=== PATIENT | female | born 1960 | race Caucasian/White ===

== ENCOUNTER → 2017-05-09 | Outpatient (CLI) | payer OTHER ==
--- NOTE | 2017-05-09 15:52 | KCIC ---
CT of the right knee without contrast. Indication: Post knee replacement in 2012. Anterior and patellar pain and swelling.. . Technique: Contiguous axial images are obtained. Multiplanar reformatted images are also obtained. Exposure: One or more of the following individualized dose reduction techniques were utilized for this examination: 1. Automated exposure control 2. Adjustment of the mA and/or kV according to patient size 3. Use of iterative reconstruction technique. Comparison study: None available. Findings: Total knee arthroplasty in place with associated metal artifact. No evidence of aggressive bone destruction or osteolysis. No evidence of an acute fracture. There is a small joint effusion. No other acute soft tissue findings are suggested. IMPRESSION: Small joint effusion. No other acute findings, post total arthroplasty. Electronically signed by: Robbie Bird MD (05/09/2017 3:48 PM) [facility]
== END | disposition home or self-care (01) ==
LOC: KCIC CT 15:09
PROVIDERS: ATTEND Orthopaedic Surgery Sports Medicine
DX: M25.461 Effusion, right knee (principal); Z96.651 Presence of right artificial knee joint
CPT/HCPCS: 73700

== ENCOUNTER → 2018-03-02 | Outpatient (CLI) | payer BC, OTHER | END | disposition home or self-care (01) | LOC: PNCL 10:25 | DX: M79.604 Pain in right leg (principal); M79.605 Pain in left leg; M54.5 Low back pain; I10 Essential (primary) hypertension; M19.90 Unspecified osteoarthritis, unspecified site; Z96.651 Presence of right artificial knee joint | CPT/HCPCS: 99214 ==

== ENCOUNTER → 2018-04-09 | Outpatient (CLI) | payer BC ==
[~2018-04-09] MED LIST: ACET-704 PO; CYCL10TA2 PO; IBUP200T44 PO; IOHEXOL 180 MG/ML 10 ML VIAL. ONE; LIDOCAINE 2% PF 2ML VIAL. ONE; methylPREDNISolone ACETATE 40 MG/ML VIAL. ONE; methylPREDNISolone ACETATE 80 MG/ML VIAL. ONE
--- NOTE | 2018-04-09 19:15 | PAIN ---
DATE OF SERVICE: 04/09/2018 DIAGNOSES: Lumbar radiculopathy with lumbar degenerative disk disease and lumbar herniated disk. HISTORY OF PRESENT ILLNESS: The patient is a 57-year-old female who returns for followup status post initial evaluation and preauthorization for lumbar epidural steroid injection. The patient returns today wishing to proceed and reports still significant pain in the bilateral lower extremities, right equal to left essentially in the posterior gluteus, posterior thighs, posterior calves as well as across the low back. The patient reports the pain is a 4-5 on a scale of 10 on average, is a 5 at its worst, 4 at its least and is a 4 today. The patient reports it is aching, sharp, radiating, becoming more constant, aching, dull, sometimes sharp as well in the low back with some stinging pains in the leg. The patient reports it does awaken her from sleep about every 2-4 hours. She has to reposition, take pain medication or get out of bed to get back to sleep. The patient reports no new motor or sensory deficits, no new bowel or bladder incontinence or other complaints. PHYSICAL EXAMINATION: VITAL SIGNS: The patient's blood pressure 140/83, pulse 63, respirations 18, temperature is 98.1 degrees Fahrenheit, height is 5 feet 9 inches, weighs 195 pounds. GENERAL: The patient is awake, alert, oriented, appropriate, very pleasant demeanor. HEENT: Head shows normocephalic, atraumatic. Extraocular movements are intact, symmetrical. The patient wears eyeglasses. Oral cavity: Mucous membranes moist and pink. Dentition is intact. NECK: Shows anterior throat supple without palpable lymphadenopathy noted. Swallow reflex is symmetrical. CHEST: Shows normal on inspection. Breath sounds clear to auscultation bilaterally. HEART: Shows S1, S2 clear. No murmurs auscultated. ABDOMEN: Soft, nontender, nondistended. No palpable organomegaly is noted. No rebound or guarding demonstrated. BACK: Shows spine grossly in the midline, normal appearing thoracic kyphosis and lumbar lordotic curvature. Lumbar paraspinous musculature shows symmetrical on inspection, on palpation shows some moderate tenderness bilaterally, but only diffusely without radiation. The patient shows good rotational motion of lumbar spine, both laterally as well as extension and flexion without difficulty. EXTREMITIES: Lower extremities show deep tendon reflexes 2+ in the patella, 1+ tendo calcaneus tendons are equal. Motor exam is strong with 5/5 dorsiflexion, extension, quadriceps and hamstring flexion and symmetrical. Peripheral pulses are 1+. No peripheral edema is noted bilaterally. Options were discussed with the patient. The patient's old chart was reviewed as her current medication regimen and updated. Current review of systems is updated today as well. We will proceed with a lumbar epidural steroid injection today with fluoroscopic guidance. Risks were again discussed including, but not limited to bleeding, infection, possibility of epidural hematoma and subsequent neurological compromise, dural puncture headaches, spinal cord and/or nerve damage, side effects of steroid medication and poor results regarding pain control. The patient understands and wished to proceed. The patient will return to clinic in approximately 2 weeks for followup, was counseled on return appointment, activity level and side effects to be aware of. DIAGNOSES: Lumbar radiculopathy with lumbar degenerative disk disease, lumbar herniated disk. PROCEDURE: Lumbar epidural steroid injection, translaminar approach L5-S1 level using C-arm fluoroscopic guidance under sterile prep and drape using local anesthetic. MEDICATION INJECTED: A total of 120 mg Depo-Medrol plus 10 mL of preservative-free normal saline and 2 mL of Isovue for contrast. CONDITION AT DISCHARGE: Stable. The patient tolerated the procedure well, had no complications. CLEVE KIMBLE MD DR: CHERELLE/christian JOB#: [id number] / [id number]
== END | disposition home or self-care (01) ==
LOC: PNCL 11:25
PROVIDERS: ATTEND Anesthesiology
DX: M51.16 Intervertebral disc disorders with radiculopathy, lumbar region (principal)
CPT/HCPCS: 62323; J1030; J1040; J2001; Q9965

== ENCOUNTER → 2018-04-22 | Outpatient (CLI) | payer BC ==
[~2018-04-22] MED LIST changes: -IOHEXOL 180 MG/ML 10 ML VIAL. ONE; -LIDOCAINE 2% PF 2ML VIAL. ONE; -methylPREDNISolone ACETATE 40 MG/ML VIAL. ONE; -methylPREDNISolone ACETATE 80 MG/ML VIAL. ONE
--- NOTE | 2018-04-22 18:21 | PAIN ---
DATE OF SERVICE: 04/22/2018 DIAGNOSES: Lumbar radiculopathy with lumbar degenerative disk disease and lumbar herniated disk. HISTORY OF PRESENT ILLNESS: The patient is a 57-year-old female who returns for followup status post lumbar epidural steroid injection x 1. The patient did very well, reports about 50%-60% improvement, initially was about 80% improvement for the first week. The patient reports overall about 50%-60% with the low back pain and into the bilateral lower extremities, right essentially equal to left. The patient reports she has been increasing her activity with greater ease and comfort. The main problem is standing for prolonged periods maybe more than 15-20 minutes when she is generally in the kitchen or preparing a meal or standing at the sink. The patient reports it is better with sitting down or lying down, does not awaken her from sleep at night. She is sleeping 8 hours at a time without difficulty. The patient reports her pain is stabbing, sharp, radiating into the lower extremities bilaterally, mostly in posterior gluteus, posterior thighs, posterior calves, again significantly improved and is not constant like it was. The patient reports the pain is a 5 on a scale of 10 at its average, 5 on a scale of 10 at its worst and 4 at its least and is a 4 today. The patient reports no new motor or sensory deficits, no new bowel or bladder incontinence but still with some radicular quality pain in the bilateral lower extremities. PHYSICAL EXAMINATION: VITAL SIGNS: The patient's blood pressure 152/96, pulse 72, respirations 18, temperature is 97.8 degrees Fahrenheit, height is 5 feet 9 inches, weighs 194 pounds. GENERAL: The patient is awake, alert, oriented, appropriate, very pleasant demeanor. HEENT: Head shows normocephalic, atraumatic. Extraocular muscles are intact and symmetrical. Oral cavity: Mucous membranes moist and pink. Dentition is intact. NECK: Shows anterior throat supple without palpable lymphadenopathy noted. Swallow reflex is symmetrical. CHEST: Shows normal on inspection. Breath sounds clear to auscultation bilaterally. HEART: Shows S1, S2 clear. No murmurs auscultated. ABDOMEN: Soft, nontender, nondistended. No palpable organomegaly is noted. BACK: Shows spine grossly in the midline. Normal appearing thoracic kyphosis and lumbar lordotic curvature. Lumbar paraspinous musculature shows symmetrical on inspection and palpation shows some moderate tenderness diffusely in the low lumbar distribution only bilaterally without radiation, without atrophy or hypertrophy, no asymmetry. The patient has good rotational motion of lumbar spine, both laterally greater than 10 degrees right and left as well as extension greater than 10 degrees, forward flexion 45 degrees without pain reported. EXTREMITIES: Lower extremities show deep tendon reflexes 2+ in the patella, 1+ in the tendo calcaneus tendons. Motor exam is strong with 5/5 dorsiflexion and extension and equal. Peripheral pulses are 1+ posterior tibial. The patient's straight leg raise is mildly positive bilaterally about 45 degrees, but decreased quickly with knee flexion. This is true bilaterally, slightly more on the left than the right. PLAN: Options were discussed with the patient. The patient's old chart was reviewed as her current medication regimen and updated. Current review of systems is updated today as well. We will preauthorize the patient for a second lumbar epidural steroid injection as she did very well with the first injection with about initially 80% improvement, now about 50% improvement overall with radicular pain continuing in the L5-S1 dermatomal distribution in the bilateral lower extremities. The patient will continue to do walking. She is still walking up to 2 miles a day when she takes her dogs out for a walk. She will continue doing this as well as stretching and strengthening exercises, which she will continue as well. The patient will follow up in approximately 2 weeks as noted. We will plan on second lumbar epidural steroid injection at that time. CLEVE KIMBLE MD DR: CHERELLE/christian JOB#: [id number] / [id number]
== END | disposition home or self-care (01) ==
LOC: PNCL 10:00
PROVIDERS: ATTEND Anesthesiology
DX: M51.16 Intervertebral disc disorders with radiculopathy, lumbar region (principal); I10 Essential (primary) hypertension; Z96.651 Presence of right artificial knee joint
CPT/HCPCS: 99212

== ENCOUNTER → 2018-05-05 | Outpatient (CLI) | payer BC ==
[~2018-05-05] MED LIST changes: +CHOL10003 PO; +CYAN10005 PO; +IOHEXOL 180 MG/ML 10 ML VIAL. ONE; +LIDOCAINE 2% PF 2ML VIAL. ONE; +VITA1CAP PO; +methylPREDNISolone ACETATE 40 MG/ML VIAL. ONE; +methylPREDNISolone ACETATE 80 MG/ML VIAL. ONE
--- NOTE | 2018-05-05 09:37 | PAIN ---
DATE OF SERVICE: 05/05/2018 PROGRESS NOTE FOR PAIN CLINIC DIAGNOSES: Lumbar radiculopathy with lumbar degenerative disk disease and lumbar herniated disk. HISTORY OF PRESENT ILLNESS: The patient is a 57-year-old female who returns for followup status post lumbar epidural steroid injection x 1 with about 60% improvement. The patient still has some pain in the low back now. We will wait for preauthorization, which she has obtained and would like to proceed with a second injection today. The patient reports pain still stabbing, aching, sharp, radiating to the low back and bilateral lower extremities. No new motor or sensory deficits and no new bowel or bladder incontinence or other complaints. The patient reports her pain rating from a 7-10 at its worst, 7-10 on average and a 4-6 at its least and is a 7 today. The patient reports no new motor or sensory deficits and no new bowel or bladder incontinence or other complaints. She was originally doing much better, increasing activity, greater distance walking, doing household activity as well as recreational activities. 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 PHYSICAL EXAMINATION: VITAL SIGNS: The patient's blood pressure 146/89, pulse 67, respirations 16, temperature is 98.2 degrees Fahrenheit and weight is 196 pounds. GENERAL: The patient is awake, alert, oriented, appropriate and very pleasant demeanor. HEENT: Head shows normocephalic and atraumatic. Extraocular movements are intact and symmetrical. Oral cavity, mucous membranes are moist and pink. Dentition is intact. NECK: Shows anterior throat supple without palpable lymphadenopathy noted. Swallow reflex symmetrical. CHEST: Shows normal with inspection. Breath sounds clear to auscultation bilaterally. HEART: Shows S1 and S2 clear. No murmurs auscultated. ABDOMEN: Soft, nontender and nondistended. No palpable organomegaly is noted. No rebound or guarding demonstrated. BACK: The patient's back shows spine grossly in the midline. Normal appearing thoracic kyphosis as well as lumbar lordotic curvature. Lumbar paraspinous muscle shows symmetrical on inspection, on palpation shows some moderate tenderness bilaterally but only in the middle and lower distribution of the paraspinous muscles. The patient has good rotational motion of the lumbar spine, both laterally as well as extension and flexion without significant difficulty. No tenderness over the sacrum or sacroiliac regions. EXTREMITIES: Lower extremities show deep tendon reflexes at 2+ in the patellar, 1+ tendo-calcaneus tendons. Motor exam is strong with 5/5 dorsiflexion, extension, quadriceps and hamstring flexion and symmetrical as well. Peripheral pulses are 1+. No peripheral edema is noted. Options were discussed with the patient. The patient's old chart was reviewed as well as her current medication regimen updated. Current review of systems updated today as well. We will proceed with a second lumbar epidural steroid injection today with fluoroscopic guidance. Risks were again discussed including, but not limited to bleeding, infection, possibility of epidural hematoma and subsequent neurological compromise, dural puncture, headaches, spinal cord and/or nerve damage, side effects of steroid medication and poor results regarding pain control. The patient understands and wished to proceed. The patient will return to the clinic in approximately 2 weeks for followup, was counseled as to return appointment, activity level and side effects to be aware of. DIAGNOSES: Lumbar radiculopathy with lumbar degenerative disk disease and lumbar herniated disk. PROCEDURE: Lumbar epidural steroid injection, translaminar approach, L5-S1 level using C-arm fluoroscopic guidance under sterile prep and drape using local anesthetic. MEDICATION INJECTED: A total of 120 mg Depo-Medrol plus 10 mL of preservative-free normal saline and 2 mL of Isovue for contrast. CONDITION AT DISCHARGE: Stable. The patient tolerated the procedure well and had no complications. CLEVE KIMBLE MD DR: CHERELLE/christian JOB#: [id number] / [id number]
== END | disposition home or self-care (01) ==
LOC: PNCL 07:37
PROVIDERS: ATTEND Anesthesiology
DX: M51.16 Intervertebral disc disorders with radiculopathy, lumbar region (principal)
CPT/HCPCS: 62323; J1030; J1040; J2001; Q9965